=== PATIENT | male | born 1980 | race Caucasian/White ===

== ENCOUNTER 2018-08-21 07:54 | Emergency (ER) | payer MEDICAID ==
[~2018-08-21] VITALS: Ht 195.6 cm; Wt 83.6 kg
[2018-08-21 08:49] LABS: BASOPHILS # (AUTO) 0.01 x10^3/uL (0-0.1); BASOPHILS % (AUTO) 0 % (0-1); EOSINOPHILS # (AUTO) 0.01 x10^3/uL (0-0.4); EOSINOPHILS % (AUTO) 0 % (1-7); LYMPHOCYTES # (AUTO) 1.05 x10^3/uL (1-3.4); LYMPHOCYTES % (AUTO) 20 % (22-44); MD NO; MEAN CORPUSCULAR HEMOGLOBIN 31.8 pg (27.5-34.5); MEAN CORPUSCULAR HGB CONC 34.3 g/dL (33.2-36.2); MEAN CORPUSCULAR VOLUME 92.6 fL (81-97); MEAN PLATELET VOLUME 9.6 fL (7.4-10.4); MONOCYTES # (AUTO) 0.73 x10^3/uL (0.2-0.8); MONOCYTES % (AUTO) 14 % (2-9); NEUTROPHILS # (AUTO) 3.45 x10^3/uL (1.8-6.8); NEUTROPHILS % (AUTO) 66 % (42-75); PLATELET COUNT 158 x10^3/uL (130-400); RED BLOOD COUNT 4.83 x10^6/uL (4.38-5.82); RED CELL DISTRIBUTION WIDTH 12.8 % (9.4-14.8)
--- NOTE | 2018-08-21 08:49 | NUR ---
BLOOD IN LAB, PT MEDICATED PER MD ORDER, PT IN BED, FAMILY MEMBER AT BEDSIDE, NAD, AWAITING LABS & XRAY. NO NEEDS AT THIS TIME, WCTM
[2018-08-21 08:59] LABS: ALANINE AMINOTRANSFERASE 25 U/L (12-78); ALBUMIN 3.9 g/dL (3.4-5.0); ANION GAP 6 mmol/L (5-15); CALCIUM 8.2 mg/dL (8.5-10.1); CHLORIDE 107 mmol/L (98-107); CREATININE 0.85 mg/dL (0.7-1.3)
[2018-08-21 09:03] LABS: ALKALINE PHOSPHATASE 98 U/L (45-117); BILIRUBIN,TOTAL 0.3 mg/dL (0.2-1.0); TOTAL PROTEIN 7.3 g/dL (6.4-8.2); TROPONIN I < 0.015 ng/mL (0.000-0.045)
--- NOTE | 2018-08-21 09:10 | NUR ---
TASK RN: PT RESTING ON [employer] [place] [employer] ON CELL PHONE. FAMILY BEDSIDE. NO ACUTE DISTRESS NOTED. NO NEEDS REQUESTED AT THIS TIME.
[2018-08-21] MEDS ORDERED: SODIUM CHLORIDE 0.9% 1,000ML IVBOLUS ONE (09:30)
[2018-08-21 09:36] VITALS: BP 144/78
== END 2018-08-21 09:38 | disposition home or self-care (01) ==
LOC: ED 08:51
DX: F41.9 Anxiety disorder, unspecified (principal); F32.9 Major depressive disorder, single episode, unspecified; F17.210 Nicotine dependence, cigarettes, uncomplicated
CPT/HCPCS: 36415; 71046; 80053; 84484; 85025; 93005; 99284; Q0177

== ENCOUNTER 2018-11-12 11:08 | Emergency (ER) | payer MEDICAID ==
[~2018-11-12] VITALS: Ht 195.6 cm; Wt 76.4 kg
[2018-11-12 11:12] VITALS: BP 134/92
[2018-11-12] MEDS ORDERED: NEOSPORIN OINT. PKT 1 PACKET ONE (11:35)
[2018-11-12] MEDS ORDERED: LIDOCAINE-MPF 1%, 5ML ONE (11:35)
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
[2018-11-12] MEDS ORDERED: IBUPROFEN 200 MG TABLET ONE (11:51)
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
[2018-11-12] MEDS ORDERED: NEOSPORIN OINT. PKT 1 PACKET TP ONE (12:00)
[2018-11-12] MEDS ORDERED: LIDOCAINE-MPF 1%, 5ML INFIL ONE (12:00)
[2018-11-12] MEDS ORDERED: IBUPROFEN 600 MG TABLET PO ONE (12:00)
--- NOTE | 2018-11-12 12:01 | NUR ---
ICE PACK PROVIDED/ CUP OF WATER
== END 2018-11-12 12:16 | disposition home or self-care (01) ==
LOC: ED 12:12
DX: S01.111A Laceration without foreign body of right eyelid and periocular area, initial encounter (principal); F32.9 Major depressive disorder, single episode, unspecified; F17.200 Nicotine dependence, unspecified, uncomplicated; W01.0XXA Fall on same level from slipping, tripping and stumbling without subsequent striking against object, initial encounter; Y93.01 Activity, walking, marching and hiking; Y92.89 Other specified places as the place of occurrence of the external cause; Y99.8 Other external cause status
CPT/HCPCS: 12051

== ENCOUNTER 2020-12-07 15:53 | Emergency (ER) | payer MEDICAID ==
[~2020-12-07] VITALS: Ht 195.6 cm; Wt 90.0 kg
[2020-12-07 16:10] VITALS: BP 143/104
--- NOTE | 2020-12-07 16:35 | NUR ---
TASK RN: THIS IS A 40 YO M WHO PRESENTS FROM TRIAGE MAKING GENERAL STATEMENTS SUCH "I WANT TO SAY GOODBYE TO MY MOM, WOULDN'T YOU WANT TO SAY GOODBYE TO YOUR MOM?". PT TEARFUL. PT NOT COOPERATIVE W/ ASSESSMENT QUESTIONS REGARDING SPECIFIC SUICIAL IDEATION. PT ADMITS TO ALCOHOL EXTERNAL RELATIONS DIRECTOR, REPORTS HX OF PTSD. PT REFUSING GOWN. BELONGINGS TO SAFE KEEPING. RESTING ON GURNEY W/ SIDE RAILS UPX2, GARAGE DOORS DOWN AND SITTER OUTSIDE ROOM FOR SAFETY.
--- NOTE | 2020-12-07 16:51 | NUR ---
PT WALKED OUT OF ROOM. WALKING AGGRESSIVELY TOWARDS STAFF STATING "WHAT ARE YOU GOING TO DO ABOUT IT? I WANT TO LEAVE, YOU CAN'T STOP ME". THIS RN FOUND BODY LANGUAGE TO BE THREATENING. PT WALKED OUT OF ED. SECURITY CALLED. ERP UPDATED.
--- NOTE | 2020-12-07 17:01 | NUR ---
PT LEFT PRIOR TO RECEIVING PERSONAL BELONINGS. AMBULATORY W/ A STEADY GAIT.
== END 2020-12-07 17:06 | disposition left against medical advice (07) ==
LOC: ED 17:00
DX: F10.129 Alcohol abuse with intoxication, unspecified (principal); Z53.21 Procedure and treatment not carried out due to patient leaving prior to being seen by health care provider; Y90.0 Blood alcohol level of less than 20 mg/100 ml